=== PATIENT | female | born 1955 | race Asian ===

== ENCOUNTER 2018-12-11 08:07 | Day surgery (SDC) | payer MEDICARE, OTHER, SELFPAY ==
--- NOTE | 2018-12-11 | PATH_ITS ---
[facility] Accession Number: [id number] . 01 Material submitted: . GASTRIC BIOPSY . 01 Clinical history: . H/O H.PYLORI . 02 Diagnosis: Stomach, Biopsy: Antral and body-type mucosa with no diagnostic abnormality. Negative for Helicobacter by immunohistochemistry. Negative for intestinal metaplasia. Negative for dysplasia and malignancy. V/12/13/2018 . 02 Electronically signed: . Jesica Gillette MD, Pathologist NPI- [id number] . 01 Gross description: . Received one formalin-filled container labeled with the patient's name and labeled gastric. The specimen consists of a 0.3 cm portion of tissue, which is entirely submitted in one cassette. [place] [place][id number] /[facility] . 02 Microscopic: . An immunohistochemical stain was performed to evaluate for Helicobacter organisms and is negative. The control stain showed appropriate reactivity. . * This test was developed and its performance characteristics determined by [facility]. It has not been cleared or approved by the U.S. Food and Drug Administration. The FDA has determined that such clearance or approval is not necessary. This test is used for clinical purposes. It should not be regarded as investigational or for research. . 02 Pathologist provided ICD-10: R10.9 . 02 CPT . 292199, [id number] Performed at: 01 [facility] [address] [facility], [place], [place] [id number] MD Prashant Montilla MD Phone: [phone] Performed at: 02 [facility] [address] [place], [place] [id number] MD Jesica Gillette MD Phone: [phone]
[2018-12-11 08:40] VITALS: BP 115/69; PULSE 73; RESP 16; TEMP 36.8; O2SAT 96; BMI 21.9
[2018-12-11] MEDS: SODIUM CHLORIDE 0.9% 1,000 ML 42 ML IV (09:23)
--- NOTE | 2018-12-11 09:40 | PM.HP.1 ---
History of Present Illness Date Patient Seen: 12/11/18 Time Patient Seen: 09:40 Chief complaint: colonoscopy egd [id number] Narrative: GE reflux with cervical dysphagia and possible LPR symptoms. Also history of Helicobacter status post treatment rule out and cleared Helicobacter. History of adenomatous colon polyps Patient History Medical History Hypertension (Acute) Surgical History History of cataract removal with insertion of prosthetic lens (09/23/15) History of cataract removal with insertion of prosthetic lens (09/30/15) Status post hernia repair Family & Social History Social History: household members spouse Meds Home Medications Medication Instructions Recorded Confirmed Type [VITAMINS] #0 12/06/08 History gabapentin 800 mg PO HS #0 11/15/16 12/11/18 History Allergies Allergy/AdvReac Type Severity Reaction Status Date / Time salmeterol AdvReac Unknown Verified 12/11/18 08:54 Exam Vital Signs (past 8 hours): - 12/11/18 08:40 Temperature 98.3 F Pulse Rate 73 Respiratory Rate 16 Blood Pressure 115/69 Pulse Oximetry 96 Oxygen Delivery Method Room Air Narrative Exam Narrative: Oropharynx free of lesions Chest clear to auscultation percussion Cardiac exam reveals no S3 or murmur Assessment & Plan Plan: Assessment/Plan Narrative: GE reflux dysphagia and history of Helicobacter need for EGD. History of adenomatous colon polyps need for follow-up colonoscopy. Risks benefits and alternatives have been explained
--- NOTE | 2018-12-11 09:42 | PM.OP.ENDO ---
Operative Date/Time/Diagnoses Date of procedure: 12/11/18 Time of procedure: 09:42 Pre-op diagnosis: See indication and findings Procedure & Clinicians Study performed: EGD and colonoscopy Same procedure as scheduled: Yes Indications: GE reflux dysphagia and history of Helicobacter positivity. History of adenomatous colon polyps. Surgeon: Sg Turpin Procedure Notes Procedure in detail: After informed consent was obtained the patient was placed in the left lateral decubitus position. The video upper scope was introduced in the oropharynx with the patient felt salt into the esophagus. The esophagus stomach and duodenum were carefully examined. On withdrawal retroflexed view the GE junction was performed. The scope was removed. The patient tolerated the procedure well. The patient was then turned and the colonoscope was substituted. This was passed into the rectum and slowly advanced to the cecum. Preparation was good. On slow withdrawal mucosa was carefully examined. The scope was removed. The patient tolerated the procedure well. Blood loss none Complications none Sedation Total sedation time 31 min Versed 9 mg fentanyl 100 mcg IV titration Findings EGD 1. Normal esophagus without evidence of esophagitis but with a fairly wide open lower esophageal sphincter. 2. Mild distal gastric erythema. Biopsies taken to rule out on cleared Helicobacter 3. Normal duodenal bulb and sweep Colonoscopy 1. Normal colonoscopy to cecum Patient called regarding biopsies of her stomach. We probably should ever actually returned to discuss her reflux symptoms and once it sound more like LPR. She will need follow-up colonoscopy in 5 years.
[2018-12-11] MEDS: MIDAZOLAM 5 MG/5 ML VIAL IV (09:59)
[2018-12-11] MEDS: fentaNYL 250 MCG/5 ML INJ IV (09:59)
[2018-12-11 10:05] VITALS: BP 97/60; PULSE 61; RESP 19; TEMP 36.8; O2SAT 95
[2018-12-11 10:10] VITALS: BP 93/58; PULSE 58; RESP 16; O2SAT 100
[2018-12-11 10:15] VITALS: BP 96/59; PULSE 66; RESP 14; TEMP 36.6; O2SAT 95
[2018-12-11 10:20] VITALS: BP 96/60; PULSE 61; RESP 18; TEMP 36; O2SAT 96
[2018-12-11 10:28] VITALS: BP 100/64; PULSE 68; RESP 14; TEMP 36.4; O2SAT 96
== END 2018-12-11 11:40 | disposition home or self-care (01) ==
PROVIDERS: Family Provider Internal Medicine; PCP Internal Medicine; Visit Provider Internal Medicine Gastroenterology
PROC: 0DJ08ZZ Inspection of Upper Intestinal Tract, Via Natural or Artificial Opening Endoscopic (ICD-10-PCS; CPT 43235; principal; 2018-12-11 09:30)
PROC: 0DJD8ZZ Inspection of Lower Intestinal Tract, Via Natural or Artificial Opening Endoscopic (ICD-10-PCS; CPT 45378; 2018-12-11 09:30)
DX: Z86.010 Personal history of colon polyps (principal); R13.10 Dysphagia, unspecified; K21.9 Gastro-esophageal reflux disease without esophagitis
CPT/HCPCS: 43239; G0105; 88305; 88342; J2250; J3010

== ENCOUNTER → 2021-12-13 09:15 | Outpatient (CLI) | payer MEDICARE, OTHER, SELFPAY ==
[2021-12-13 11:15] LABS: Alanine Aminotransferase 15 IU/L (<35); Albumin 4.2 g/dL (3.5-5.0); Albumin Globulin Ratio 1.2 (1.0-2.8); Alkaline Phosphatase 88 U/L (38-126); Aspartate Aminotransferase 27 IU/L (14-36); Bilirubin Total 0.3 mg/dL (0.2-1.3); Bilirubin Unconjugated 0.4 mg/dL (0.0-1.1); Globulin 3.4 g/dL (1.7-4.1); HEMOLYSIS < 15 (0-50); Total Protein 7.6 g/dL (6.3-8.2)
== END ==
PROVIDERS: Family Provider Internal Medicine; PCP Internal Medicine; Referring Provider Internal Medicine Gastroenterology; Visit Provider Internal Medicine Gastroenterology
DX: R10.9 Unspecified abdominal pain (principal)
CPT/HCPCS: 36415; 80076

== ENCOUNTER 2024-05-05 08:03 | Day surgery (SDC) | payer MEDICARE, OTHER, SELFPAY ==
--- NOTE | 2024-05-05 | PATH_ITS ---
[facility] Accession Number: [id number] No. of containers..02 Tissue . 01 Material submitted: . PART A: stomach - ANTRUM BIOPSY PART B: colon - TRANSVERSE POLYP . 01 Diagnosis: Part A: ANTRUM BIOPSY: Reactive gastropathy, with focal erosion. No Helicobacter organisms identified. No intestinal metaplasia, dysplasia, or malignancy identified. . Part B: TRANSVERSE POLYP: Tubular adenoma. [facility] 05/13/2024 1015 Local . 01 Electronically signed: . Prashant Montilla MD, Pathologist NPI- [id number] . 01 Gross description: . A. Received in formalin with two patient identifiers and antrum biopsy, are three leigh soft tissue fragments, all measuring 0.2 cm in greatest dimension. Submitted entirely in A1. . B. Received in formalin with two patient identifiers and transverse colon polyp, is a single leigh soft tissue fragment, 0.3 cm in greatest dimension. Submitted entirely in B1. ([id number]) /[facility] 05/13/2024 1013 Local . 01 Microscopic: . Part A: ANTRUM BIOPSY: An immunohistochemical stain was performed to evaluate for Helicobacter organisms and is negative. The control stains appropriately. * This test was developed and its performance characteristics determined by [facility]. It has not been cleared or approved by the U.S. Food and Drug Administration. The FDA has determined that such clearance or approval is not necessary. This test is used for clinical purposes. It should not be regarded as investigational or for research. . 01 Pathologist provided ICD-10: D12.3, K29.60 . 01 CPT . 192382, 520791, F29543 Specimen Comment: A courtesy copy of this report has been sent to [phone] Performed at: 01 [facility] [address] [address] [address] [facility], [place], [place] [id number] MD Prashant Montilla MD Phone: [phone]
[2024-05-05] MEDS: LACTATED RINGERS 1,000 ML 150 ML IV (08:00)
[2024-05-05 08:32] VITALS: BP 118/66; PULSE 76; RESP 18; TEMP 36.2; O2SAT 96
--- NOTE | 2024-05-05 08:56 | PM.HP.1 ---
History of Present Illness History of Present Illness Date Patient Seen: 05/05/24 Time Patient Seen: 08:56 Chief complaint: SDC Narrative: Here for EGD and colonoscopy. I reviewed the recent office note by Dr. Mendoza. No significant changes with the exception that the patient has responded to PPI. It is only when she discontinues omeprazole or Nexium that her symptoms of reflux return. [facility] Medical History Hypertension Surgical History History of cataract removal with insertion of prosthetic lens (09/30/15) History of cataract removal with insertion of prosthetic lens (09/23/15) Status post hernia repair Social History household members: spouse Smoking Status: Never smoker alcohol intake: never Meds Home Medications and Allergies Home Medications Medication Instructions Recorded Confirmed Type gabapentin 800 mg tablet 800 mg PO HS PRN Pain (Scale Score 12/21/16 05/05/24 History 1-3) ##0 Allergies Allergy/AdvReac Type Severity Reaction Status Date / Time salmeterol AdvReac Unknown martínez Verified 05/05/24 08:22 throat Review of Systems Review of Systems ROS: Yes All systems reviewed with the patient and are negative except as otherwise documented Exam Vital Signs (past 8 hours): - 05/05/24 08:32 Temperature 97.1 F L Pulse Rate 76 Respiratory Rate 18 Blood Pressure 118/66 Pulse Oximetry 96 Oxygen Delivery Method Room Air Oxygen Delivery Method Room Air Const General: cooperative HENMT Head: normal to inspection Eyes General: appearance normal, both eyes and all related structures Neck Neck: normal visual inspection Chest Chest: normal inspection of the chest Resp Effort & Inspection: normal respiratory effort Cardio Rate: regular rate GI Inspection: normal to inspection Skin General: no rashes or lesions noted Neuro General: patient alert and patient awake Extrem General: normal to inspection and no pedal edema Psych Appearance: grossly normal Assessment & Plan Assessment & Plan narrative: This is a 68-year-old female with a personal history of adenomatous colon polyp and refractory reflux symptoms. EGD and colonoscopy are pursued today.
--- NOTE | 2024-05-05 08:57 | PM.PREOP ---
Pre-operative Note Interval Note History & Physical reviewed/Exam performed by Physician: Yes Changes to H&P: Yes H&P completed within 30 days and has changed as indicated here:: See note. ASA Class (for procedural sedation): II
--- NOTE | 2024-05-05 09:32 | PM.OP.EC ---
Operative Date/Time/Diagnoses Date of procedure: 05/05/24 Time of procedure: 09:32 Pre-op diagnosis: Refractory reflux, personal history of adenomatous colon polyp Post-op diagnosis: same Procedure & Clinicians Study performed: EGD with biopsies and a colonoscopy with cold forceps polypectomy Same procedure as scheduled: Yes Indications: Refractory reflux, personal history of adenomatous colon polyp Surgeon: Norm Oliva Procedure Notes SCOAP/Timeout: Done Procedure in detail: After the risks and benefits were explained, written and verbal informed consent was obtained. The patient was brought into the procedure room and placed into the left lateral decubitus position. Please see anesthesia notes for sedation details. The scope was introduced into the mouth through the bite block and advanced under direct visualization to the 2nd portion of the duodenum. The scope was slowly withdrawn carefully examining the mucosa for any defects or lesions. Retroflexed views were accomplished in the stomach. The stomach was decompressed, the scope was then removed from the patient who tolerated the procedure well. The patient was then turned around. A digital rectal examination was accomplished. No significant pathology appreciated. The scope was introduced into the rectum and advanced to the cecum as identified by the appendiceal orifice and ileocecal valve. The scope was slowly withdrawn to carefully examine the mucosa for any defects or lesions. Multiple direct views were made through the dentate line for exclusion of pathology. The colon was decompressed. The scope was removed from the patient who tolerated the procedure well. Pediatric colonoscope Bowel prep adequate Scope withdrawal time: 9 minutes Sedation minutes: 26 Complications: none Impression: 1. Duodenal: No significant pathology appreciated from the bulb through to the 2nd portion. 2. Stomach: No ulcers, mass lesions, or outlet obstruction. There was a subtle mild erosive gastropathy in the antrum and 1 of these erosions was targeted for histopathology and exclusion of H pylori infection. Retroflexed views of the LES were unremarkable. 3. Esophagus: The squamocolumnar junction correlated with the top of the gastric folds. GEJ was at 37 cm from the incisors. No erosive esophagitis. No strictures no mass lesions. The esophagus was visually within normal limits. There was absolutely no evidence of overlying Yelena throughout. 4. Colon: In the transverse colon there was a diminutive 4 mm polyp removed with cold forceps. Otherwise the mucosa was deemed normal throughout. Endoscopic diagnosis 1. Mild erosive gastropathy 2. Otherwise visually normal-appearing EGD 3. Diminutive colon polyp 4. Otherwise visually normal appearing colonoscopy Post-procedure Plan for aftercare: 1. Await histology. 2. Taper down off anti-reflux therapy as able. Consider using [id number] famotidine as a substitute for proton pump inhibitor to help with the tapering process. 3. Repeat colonoscopy will likely be suggested for 7 years. Disposition: PACU
[2024-05-05 09:34] VITALS: BP 93/62; PULSE 80; RESP 16; O2SAT 95
[2024-05-05 09:39] VITALS: BP 95/61; PULSE 86; RESP 16; O2SAT 95
[2024-05-05 09:44] VITALS: BP 104/62; PULSE 87; RESP 13; O2SAT 96
[2024-05-05 09:52] VITALS: BP 111/73; PULSE 87; RESP 16; O2SAT 96
== END 2024-05-05 10:05 | disposition home or self-care (01) ==
PROVIDERS: Family Provider Internal Medicine; PCP Internal Medicine; Referring Provider Internal Medicine Gastroenterology; Visit Provider Internal Medicine Gastroenterology
PROC: 0DJ08ZZ Inspection of Upper Intestinal Tract, Via Natural or Artificial Opening Endoscopic (ICD-10-PCS; CPT 45380; principal; 2024-05-05 09:00)
PROC: 0DJD8ZZ Inspection of Lower Intestinal Tract, Via Natural or Artificial Opening Endoscopic (ICD-10-PCS; CPT 45378; 2024-05-05 09:00)
DX: Z12.11 Encounter for screening for malignant neoplasm of colon (principal); Z86.010 Personal history of colon polyps; K21.9 Gastro-esophageal reflux disease without esophagitis; K31.9 Disease of stomach and duodenum, unspecified; D12.3 Benign neoplasm of transverse colon
CPT/HCPCS: 45380; 43239; J2704